=== PATIENT | male | born 1980 | race American Indian/Alaskan Native ===

== ENCOUNTER 2018-07-13 18:54 | Emergency (ER) | payer SELFPAY ==
[2018-07-13] MEDS ORDERED: LIDOCAINE VISCOUS 2% PO ONE (20:46)
[2018-07-13] MEDS ORDERED: ALUM-MAG HYDROX-SIMETH 200-200-20MG/5ML PO ONE (20:46)
--- NOTE | 2018-07-13 21:35 | Emergency Department Report ---
ED Abdominal Pain HPI - General Chief Complaint: Abdominal Pain Stated Complaint: CHEST PAIN Time Seen by Provider: 07/13/18 20:45 Source: patient Mode of arrival: Ambulatory Limitations: No Limitations - History of Present Illness Initial Comments: Patient is a 37-year-old -[place] male with a history of GERD who presents for epigastric pain pressure belching after each urination yesterday states of overdid it would voice start getting gas and belching indigestion symptoms rated at 4/10 symptoms relieved by belching and sitting upright sympt oms exacerbated by report, position and lying down, pt states out of omeprazole MD Complaint: abdominal pain Onset/Timin -: days(s) Location: [facility] Radiation: none Migration to: no migration Severity: moderate Severity scale (0 -10): 4 Quality: other (pressure /gas) Consistency: intermittent Improves With: other (belching ) Worsens With: other (lying down, eating greasy foods , ETOH ) Context: other (ETOH indulgence last night ) Associated Symptoms: other (indigestion gas , flatulence , bleching ) - Related Data Previous Rx's Medication Instructions Recorded Last Taken Type Omeprazole 40 mg PO DAILY #30 capsule. 07/13/18 Unknown Rx Sucralfate [Carafate] 1 gm PO ACHS 7 Days #28 tablet 07/13/18 Unknown Rx Allergies Allergy/AdvReac Type Severity Reaction Status Date / Time No Known Allergies Allergy Unverified 07/13/18 19:16 ED Review of Systems ROS: Stated complaint: CHEST PAIN Other details as noted in HPI Constitutional: denies: chills, fever Eyes: denies: eye pain, eye discharge, vision change ENT: denies: ear pain, throat pain, congestion (care to this is a alf) Respiratory: denies: cough, shortness of breath, wheezing Cardiovascular: denies: chest pain, palpitations Endocrine: no symptoms reported Gastrointestinal: abdominal pain (emergency), other (EE) Genitourinary: denies: urgency, dysuria Musculoskeletal: denies: back pain, joint swelling, arthralgia Skin: denies: rash, lesions Neurological: denies: headache, weakness, paresthesias Psychiatric: denies: anxiety, depression Hematological/Lymphatic: denies: easy bleeding, easy bruising ED Past Medical Hx - Past Medical History Hx Hypertension: Yes - Social History Smoking Status: Never Smoker Substance Use Type: Alcohol - Medications Home Medications: Home Medications Medication Instructions Recorded Confirmed Last Taken Type Omeprazole 40 mg PO DAILY #30 capsule. 07/13/18 Unknown Rx Sucralfate [Carafate] 1 gm PO ACHS 7 Days #28 tablet 07/13/18 Unknown Rx ED Physical Exam - General Limitations: No Limitations General appearance: alert, in no apparent distress - Head Head exam: Present: atraumatic, normocephalic - Eye Eye exam: Present: normal appearance, PERRL, EOMI Pupils: Present: normal accommodation - ENT ENT exam: Present: normal exam, mucous membranes moist, TM's normal bilaterally, normal external ear exam - Expanded ENT Exam Expanded Throat exam: Positive: tonsillar erythema, other (uvula midline no stridor no wheezing ). Negative: tonsillomegaly, tonsillar exudate, R peritonsillar mass, L peritonsillar mass - Neck Neck exam: Present: normal inspection, full ROM. Absent: tenderness, meningismus, lymphadenopathy, thyromegaly - Respiratory Respiratory exam: Present: normal lung sounds bilaterally. Absent: respiratory distress, wheezes, stridor, chest wall tenderness - Cardiovascular Cardiovascular Exam: Present: regular rate, normal rhythm, normal heart sounds. Absent: systolic murmur, diastolic murmur, rubs, gallop - GI/Abdominal GI/Abdominal exam: Present: soft, normal bowel sounds. Absent: distended, tenderness, guarding, rebound, rigid, mass, bruit, hernia - Expanded GI/Abdominal Exam Expanded GI/Abdominal exam: Absent: psoas sign, obturator sign, heel tap sign, Holder's sign, Rovsing's sign, tenderness at Mcburney's Point, ascites - Rectal Rectal exam: Present: deferred - Extremities Exam Extremities exam: Present: normal inspection, full ROM, normal capillary refill. Absent: tenderness - Back Exam Back exam: Present: normal inspection, full ROM. Absent: tenderness, CVA tenderness (R), CVA tenderness (L), muscle spasm, paraspinal tenderness, vertebral tenderness, rash noted - Neurological Exam Neurological exam: Present: alert, oriented X3, CN II-XII intact, normal gait, reflexes normal - Psychiatric Psychiatric exam: Present: normal affect, normal mood - Skin Skin exam: Present: warm, dry, intact, normal color. Absent: rash ED Course Vital Signs 07/13/18 07/13/18 19:04 19:07 Temperature 98.3 F 98.3 F Pulse Rate 88 84 Respiratory 18 20 Rate Blood Pressure 140/103 140/103 O2 Sat by Pulse 97 97 Oximetry ED Medical Decision Making - EKG Data Rate: normal - EKG Data When compared to previous EKG there are: previous EKG unavailable Interpretation: normal EKG (ekg interp by ed attending ) - Radiology Data Radiology results: report reviewed, image reviewed (is) - Medical Decision Making Symptoms relieved by GI cocktail there is no cp no dizziness no light headedness no sob no back pain no n/v , there is noted htn episode today plan: BP log , start PPI, carafate x 7 days , ovoid triggers etoh, spicy foods, etc. follow up with pcp in 2-3 days given referral to [facility], pt verbalized agreement and understanding of discharge plan, will dc to home in stable condition at this time. Critical care attestation.: If time is entered above; I have spent that time in minutes in the direct care of this critically ill patient, excluding procedure time. ED Disposition Clinical Impression: GERD (gastroesophageal reflux disease) Qualifiers: Esophagitis presence: without esophagitis Qualified Code(s): K21.9 - Gastro- esophageal reflux disease without esophagitis Disposition: DC-01 TO HOME OR SELFCARE Is pt being admited?: No Does the pt Need Aspirin: No Condition: Stable Instructions: Diet for Ulcers and Gastritis (ED), Gastroesophageal Reflux Disease (ED) Prescriptions: Omeprazole 40 mg PO DAILY #30 capsule. Sucralfate [Carafate] 1 gm PO ACHS 7 Days #28 tablet Referrals: DEE AGUILAR MD [Primary Care Provider] - 3-5 Days [facility] [Outside] - 3-5 Days Forms: Work/School Release Form(ED) Time of Disposition: 21:48
[2018-07-15 12:45] VITALS: BP 144/76
== END 2018-07-13 21:56 | disposition home or self-care (01) ==
LOC: ED 18:54
DX: K21.9 Gastro-esophageal reflux disease without esophagitis (principal); I10 Essential (primary) hypertension
CPT/HCPCS: 93005; 93010